=== PATIENT | male | born 1955 | race Caucasian/White ===

== ENCOUNTER 2023-09-01 07:45 | Inpatient (IN) | payer MEDICARE, OTHER ==
[~2023-09-01] VITALS: Ht 167.6 cm; Wt 44.0 kg
[2023-09-01] VITALS (30 sets, daily range): BP systolic 117–213; BP diastolic 39–91; TEMP 97.8–98.1; O2SAT 99–100
[2023-09-01] MEDS ORDERED: ESCI5TAB PO (08:27)
[2023-09-01] MEDS ORDERED: EYEL1MED TP (08:27)
[2023-09-01] MEDS ORDERED: NA P133E RC (08:27)
[2023-09-01] MEDS ORDERED: ASCO500C18 PO (08:27)
[2023-09-01] MEDS ORDERED: ASPI81TA31 PO (08:27)
[2023-09-01] MEDS ORDERED: GLUC1KIT IM (08:27)
[2023-09-01] MEDS ORDERED: ZINC1CAP3 PO (08:27)
[2023-09-01] MEDS ORDERED: TUBE5VIA2 TD (08:27)
[2023-09-01] MEDS ORDERED: CARV3.12 PO (08:27)
[2023-09-01] MEDS ORDERED: LANS30CA56 PO (08:27)
[2023-09-01] MEDS ORDERED: IPRA3AMP22 IH (08:27)
[2023-09-01] MEDS ORDERED: LORA0.5T48 PO (08:27)
[2023-09-01] MEDS ORDERED: HYDR-4077 PO (08:27)
[2023-09-01] MEDS ORDERED: SITA50TA PO (08:27)
[2023-09-01] MEDS ORDERED: AMIO200T5 PO (08:27)
[2023-09-01] MEDS ORDERED: BISA10SU61 RC (08:27)
[2023-09-01] MEDS ORDERED: DOCU-141 PO (08:27)
[2023-09-01] MEDS ORDERED: ONDA4TAB5 PO (08:27)
[2023-09-01] MEDS ORDERED: EPOE4000 IJ (08:27)
[2023-09-01] MEDS ORDERED: INSU100V42 SQ (08:27)
[2023-09-01] MEDS ORDERED: ARGI1POW13 PO (08:27)
[2023-09-01] MEDS ORDERED: ACET325C7 PO (08:27)
[2023-09-01] MEDS ORDERED: DICL100G31 TP (08:27)
[2023-09-01] MEDS ORDERED: MAGN400O6 PO (08:27)
[2023-09-01 08:28] LABS: BASOPHILS % (AUTO) 0.7 % (0.0-2.0); EOSINOPHILS # (AUTO) 0.5 K/uL (0.0-0.7); EOSINOPHILS % (AUTO) 7.9 % (0.0-7.0); HEMATOCRIT 27.1 % (36.7-47.1); HEMOGLOBIN 9.1 g/dL (12.5-16.3); LYMPHOCYTES # (AUTO) 0.3 K/uL (0.8-4.8); LYMPHOCYTES % (AUTO) 4.3 % (20.5-51.5); MEAN CORPUSCULAR HGB CONC 34 g/dL (32.5-36.3); MEAN CORPUSCULAR VOLUME 80.4 fL (73.0-96.2); MONOCYTES # (AUTO) 0.8 K/uL (0.1-1.30); MONOCYTES % (AUTO) 11.9 % (0.0-11.0); NEUTROPHILS # (AUTO) 5.2 K/uL (1.8-8.9); NEUTROPHILS % (AUTO) 75.2 % (38.5-71.5); PLATELET COUNT (AUTO) 239 K/uL (152-348); RED BLOOD CELL COUNT(AUTO) 3.37 MIL/uL (4.06-5.63); RED CELL DISTRIBUTION WIDTH 17.5 % (12.1-16.2); WHITE BLOOD COUNT (AUTO) 6.9 K/uL (3.6-10.2)
[2023-09-01 08:34] LABS: DIFFERENTIAL COMMENT 1
[2023-09-01 08:47] LABS: CALCIUM 8.7 mg/dL (8.5-10.1)
[2023-09-01 08:52] LABS: POTASSIUM 4.8 mmol/L (3.5-5.1)
[2023-09-01] MEDS ORDERED: hydrALAZINE HCL 20 MG/1 ML VIAL ONE ×2 (09:18→10:52)
[2023-09-01] MEDS: hydrALAZINE HCL 20 MG/1 ML VIAL IV ONE ×3 (09:22→10:57)
[2023-09-01] MEDS ORDERED: MORPHINE SULFATE 4 MG/1 ML DISP.SYRIN ONE ×2 (09:55→10:52)
[2023-09-01] MEDS: MORPHINE SULFATE 4 MG/1 ML DISP.SYRIN IV ONE ×2 (10:02→10:57)
[2023-09-01] MEDS ORDERED: REMEDY ESSENTIAL ZINC PASTE 113 GM TP PRN (11:45)
[2023-09-01] MEDS ORDERED: [UNRECOGNIZED DRUG - OTHER] XX SCH (11:45)
[2023-09-01] MEDS ORDERED: ONDANSETRON 4 MG/2 ML VIAL IV PRN (11:45)
[2023-09-01] MEDS ORDERED: FLEET ENEMA 133 ML BOTTLE RC PRN (11:45)
[2023-09-01] MEDS ORDERED: DEXTROSE 50% 50 ML DISP.SYRIN IV PRN (11:45)
[2023-09-01] MEDS ORDERED: HOME MED MISCELLANEOUS XX SCH ×3 (11:45)
[2023-09-01] MEDS ORDERED: BISACODYL 10 MG SUPP.RECT RC PRN (11:45)
[2023-09-01] MEDS ORDERED: ACETAMINOPHEN 325 MG TABLET PO PRN (11:45)
[2023-09-01] MEDS ORDERED: MAGNESIUM HYDROXIDE 30 ML LIQUID UDC PO PRN ×2 (11:45)
[2023-09-01] MEDS ORDERED: DICLOFENAC TP PRN (11:45)
[2023-09-01] MEDS: LORAZEPAM 0.5 MG TABLET PO PRN (14:34)
[2023-09-01] MEDS: hydrALAZINE HCL 50 MG TABLET PO SCH (14:34)
[2023-09-01] MEDS: BLOOD SUGAR DIAGNOSTIC 1 EACH STRIP VI SCH (16:30)
[2023-09-01] MEDS: DOCUSATE SODIUM 100 MG CAPSULE PO SCH (16:32)
[2023-09-01] MEDS: ARGININE/GLUTAMINE/CALCIUM BMB 1 EACH POWD.PACK PO SCH (16:33)
[2023-09-01] MEDS: hydrALAZINE HCL 20 MG/1 ML VIAL IV PRN (16:53)
[2023-09-01] MEDS: CARVEDILOL 3.125 MG TABLET PO SCH (17:00)
[2023-09-01] MEDS: AMIODARONE HCL 200 MG TABLET PO SCH (17:00)
[2023-09-01] MEDS ORDERED: ESCITALOPRAM OXALATE 10 MG TABLET PO SCH (21:00)
[2023-09-02] VITALS (49 sets, daily range): BP systolic 129–222; BP diastolic 36–68; TEMP 97.6–98.4; O2SAT 98–100
[2023-09-02 05:49] LABS: BASOPHILS # (AUTO) 0.2 K/UL (0.0-0.2); BASOPHILS % (AUTO) 2.8 % (0.0-2.0); EOSINOPHILS # (AUTO) 0.3 K/uL (0.0-0.7); EOSINOPHILS % (AUTO) 4.4 % (0.0-7.0); HEMATOCRIT 27.2 % (36.7-47.1); LYMPHOCYTES # (AUTO) 1.9 K/uL (0.8-4.8); LYMPHOCYTES % (AUTO) 27.6 % (20.5-51.5); MEAN CORPUSCULAR HEMOGLOBIN 26.9 uug (23.8-33.4); MEAN CORPUSCULAR HGB CONC 33 g/dL (32.5-36.3); MEAN CORPUSCULAR VOLUME 81.4 fL (73.0-96.2); MONOCYTES # (AUTO) 0.5 K/uL (0.1-1.30); MONOCYTES % (AUTO) 7.8 % (0.0-11.0); NEUTROPHILS # (AUTO) 3.9 K/uL (1.8-8.9); NEUTROPHILS % (AUTO) 57.4 % (38.5-71.5); PLATELET COUNT (AUTO) 197 K/uL (152-348); RED BLOOD CELL COUNT(AUTO) 3.34 MIL/uL (4.06-5.63); RED CELL DISTRIBUTION WIDTH 17.2 % (12.1-16.2); WHITE BLOOD COUNT (AUTO) 6.8 K/uL (3.6-10.2)
[2023-09-02 06:00] LABS: DIFFERENTIAL COMMENT 1
[2023-09-02 06:04] LABS: CALCIUM 8.6 mg/dL (8.5-10.1); CREATININE 5.1 mg/dL (0.6-1.3); MAGNESIUM 2.3 mg/dL (1.8-2.4); PHOSPHOROUS 4.8 mg/dL (2.5-4.9); POTASSIUM 4.6 mmol/L (3.5-5.1)
[2023-09-02 06:13] LABS: THYROID STIMULATING HORMONE 0.812 mIU/mL (0.358-3.740)
[2023-09-02] MEDS: ZINC SULFATE 220 MG CAPSULE PO SCH (08:28)
[2023-09-02] MEDS: ASCORBIC ACID 500 MG TABLET PO SCH (08:29)
[2023-09-02] MEDS: ASPIRIN 81 MG TAB.CHEW PO SCH (08:29)
[2023-09-02] MEDS: LINAGLIPTIN 5 MG TABLET PO SCH (08:32)
[2023-09-02] MEDS: LOSARTAN POTASSIUM 50 MG TABLET PO SCH (10:13)
[2023-09-02] MEDS: ACETAMINOPHEN 325 MG TABLET PO PRN (12:17)
[2023-09-02] MEDS: EPOETIN ALFA-EPBX 10,000 UNIT/ML VIAL SQ SCH (15:15)
[2023-09-02] MEDS: AMLODIPINE 10 MG TABLET PO SCH (21:12)
[2023-09-03 00:03] VITALS: BP 151/34; TEMP 97.7; O2SAT 99
[2023-09-03 05:28] VITALS: BP 166/40; TEMP 99; O2SAT 97
[2023-09-03 06:44] LABS: CALCIUM 8.6 mg/dL (8.5-10.1); CREATININE 4.1 mg/dL (0.6-1.3); POTASSIUM 3.9 mmol/L (3.5-5.1)
[2023-09-03 06:52] LABS: BASOPHILS # (AUTO) 0.1 K/UL (0.0-0.2); BASOPHILS % (AUTO) 1.7 % (0.0-2.0); EOSINOPHILS # (AUTO) 0.3 K/uL (0.0-0.7); EOSINOPHILS % (AUTO) 5.5 % (0.0-7.0); HEMATOCRIT 27.5 % (36.7-47.1); HEMOGLOBIN 9.1 g/dL (12.5-16.3); LYMPHOCYTES # (AUTO) 1.8 K/uL (0.8-4.8); LYMPHOCYTES % (AUTO) 33.3 % (20.5-51.5); MEAN CORPUSCULAR HEMOGLOBIN 26.7 uug (23.8-33.4); MEAN CORPUSCULAR HGB CONC 33 g/dL (32.5-36.3); MEAN CORPUSCULAR VOLUME 80.9 fL (73.0-96.2); MONOCYTES # (AUTO) 0.5 K/uL (0.1-1.30); MONOCYTES % (AUTO) 9.2 % (0.0-11.0); NEUTROPHILS # (AUTO) 2.7 K/uL (1.8-8.9); NEUTROPHILS % (AUTO) 50.3 % (38.5-71.5); PLATELET COUNT (AUTO) 163 K/uL (152-348); RED CELL DISTRIBUTION WIDTH 16.8 % (12.1-16.2); WHITE BLOOD COUNT (AUTO) 5.4 K/uL (3.6-10.2)
[2023-09-03 06:53] LABS: DIFFERENTIAL COMMENT 1
[2023-09-03 07:41] VITALS: BP 145/32; TEMP 98.5; O2SAT 97
[2023-09-03 11:50] VITALS: BP 168/37; TEMP 98.1; O2SAT 93
[2023-09-03] MEDS: INSULIN REGULAR, HUMAN 300 UNIT/3 ML VIAL SQ PRN (12:06)
[2023-09-03 15:56] VITALS: BP 139/31; TEMP 98.2; O2SAT 94
[2023-09-03 19:45] VITALS: BP 156/34; TEMP 97.8; O2SAT 95
[2023-09-04] VITALS (7 sets, daily range): BP systolic 110–159; BP diastolic 24–37; TEMP 97.6–98.1; O2SAT 90–97
[2023-09-04 03:06] LABS: HEPATITIS B SURFACE AG Negative (Negative)
[2023-09-04 03:06] LABS: HEPATITIS B SURFACE AB, QUAL Non Reactive (.); HEPATITIS B SURFACE AG Negative (Negative)
[2023-09-04 06:42] LABS: BASOPHILS # (AUTO) 0.1 K/UL (0.0-0.2); BASOPHILS % (AUTO) 1.6 % (0.0-2.0); EOSINOPHILS # (AUTO) 0.5 K/uL (0.0-0.7); EOSINOPHILS % (AUTO) 8.7 % (0.0-7.0); HEMATOCRIT 26.5 % (36.7-47.1); LYMPHOCYTES # (AUTO) 0.6 K/uL (0.8-4.8); MEAN CORPUSCULAR HEMOGLOBIN 27.3 uug (23.8-33.4); MEAN CORPUSCULAR HGB CONC 34 g/dL (32.5-36.3); MEAN CORPUSCULAR VOLUME 80.7 fL (73.0-96.2); MONOCYTES # (AUTO) 1.5 K/uL (0.1-1.30); NEUTROPHILS # (AUTO) 3.5 K/uL (1.8-8.9); NEUTROPHILS % (AUTO) 56.7 % (38.5-71.5); PLATELET COUNT (AUTO) 173 K/uL (152-348); RED BLOOD CELL COUNT(AUTO) 3.29 MIL/uL (4.06-5.63); RED CELL DISTRIBUTION WIDTH 16.7 % (12.1-16.2); WHITE BLOOD COUNT (AUTO) 6.2 K/uL (3.6-10.2)
[2023-09-04 06:57] LABS: ALBUMIN 2.4 g/dL (3.4-5.0); BILIRUBIN,TOTAL 0.7 mg/dL (0.2-1.0); CALCIUM 9.2 mg/dL (8.5-10.1); CREATININE 6.3 mg/dL (0.6-1.3); MAGNESIUM 2.4 mg/dL (1.8-2.4); PHOSPHOROUS 4.5 mg/dL (2.5-4.9); POTASSIUM 4.4 mmol/L (3.5-5.1); TOTAL PROTEIN, SERUM 7.3 g/dL (6.4-8.2)
[2023-09-04 07:20] LABS: DIFFERENTIAL COMMENT 1
[2023-09-04] MEDS ORDERED: NUTR1PAC14 PO (13:58)
[2023-09-04] MEDS ORDERED: ACET325T53 PO (13:58)
[2023-09-04] MEDS ORDERED: LOSA50TA3 PO (13:58)
[2023-09-04 14:40] LABS: BAND % (MANUAL) 3 % (0-10); BASOPHILS % (MANUAL) 2 % (0-2); EOSINOPHILS % (MANUAL) 11 % (0-8); LYMPHOCYTES % (MANUAL) 12 % (20-40); METAMYELOCYTES % 1 % (0-1); MONOCYTES % (MANUAL) 16 % (2-10); NEUTROPHILS % (MANUAL) 55 % (42-75)
[2023-09-04 14:41] LABS: ANISOCYTOSIS 1+; PLATELET ESTIMATE ADEQUATE; TARGET CELLS MODERATE
== END 2023-09-04 21:00 | DRG 291 ==
LOC: ER 07:55 → CCU 12:45 → TELE3 09-02 22:50 → MEDSURG3 09-04 09:26
PROVIDERS: ADMIT Nurse Practitioner Acute Care; ATTEND Internal Medicine
PROC: 5A1D70Z Performance of Urinary Filtration, Intermittent, Less than 6 Hours Per Day (ICD-10-PCS; principal; 2023-09-01)
DX: I13.2 Hypertensive heart and chronic kidney disease with heart failure and with stage 5 chronic kidney disease, or end stage renal disease (principal); E43 Unspecified severe protein-calorie malnutrition; N18.6 End stage renal disease; I50.33 Acute on chronic diastolic (congestive) heart failure; E87.1 Hypo-osmolality and hyponatremia; I16.0 Hypertensive urgency; D50.9 Iron deficiency anemia, unspecified; E11.22 Type 2 diabetes mellitus with diabetic chronic kidney disease; E78.5 Hyperlipidemia, unspecified; F32.A Depression, unspecified; I27.20 Pulmonary hypertension, unspecified; I35.0 Nonrheumatic aortic (valve) stenosis; I48.0 Paroxysmal atrial fibrillation; I44.0 Atrioventricular block, first degree; Z99.2 Dependence on renal dialysis
CPT/HCPCS: 36415; 70030-TC; 71045; 83735; 84100; 84443; 85025; 86706; 87340; 93005; 93307; 94760; A4606; A4663; G0378; J0360; J0885; J1815; J2270; J7040